=== PATIENT | male | born 1995 | race Two or more races ===

== ENCOUNTER 2023-10-09 14:26 | Emergency (ER) | payer OTHER, SELFPAY ==
--- NOTE | 2023-10-09 14:38 | ECG_ITS ---
Test Reason : cocaine use Blood Pressure : / mmHG Vent. Rate : 104 BPM Atrial Rate : 104 BPM P-R Int : 160 ms QRS Dur : 102 ms QT Int : 356 ms P-R-T Axes : 045 -20 024 degrees QTc Int : 468 ms Sinus tachycardia Minimal voltage criteria for LVH, may be normal variant ( R in aVL ) Borderline ECG No previous ECGs available Referred By: Sarah Garcia Electronically Signed By:CEDRIC NARAYANAN
[2023-10-09 14:43] VITALS: BP 140/90; PULSE 105; RESP 18; TEMP 36.6; O2SAT 97; BMI 39.8
--- NOTE | 2023-10-09 14:44 | ED.GENADULT ---
HPI - General Adult General Chief complaint: ETOH/Substance Use Stated complaint: Given Cocaine Does Not Feel Well Related Data Allergies Allergy/AdvReac Type Severity Reaction Status Date / Time No Known Allergies Allergy Verified 10/09/23 14:48 [facility] Social History Social History Advance Directives Information Provided: No Advance Directives on File: No Physical Exam ED Vital Signs: BMI result Body Mass Index 39.8 Course Course Course Narrative: This is a rapid medical exam: Additional HPI, ROS, PE not included below will be deferred to primary provider. Patient is a 28-year-old male with newly diagnosed T2DM presenting to the ED with complaint of palpitations, nausea, vomiting and diaphoresis after snorting what he thought was cocaine given to him by a friend. Denies prior cocaine use. Plan: EKG, labs, urine drug screen Medical Decision Making Lab Data 10/09/23 14:57 10/09/23 14:57 Labs: Lab Results 10/09/23 Range/Units 14:57 WBC 14.2 H (4.8-10.8) X10*3/uL RBC 6.68 H (4.60-5.80) X10*6/uL Hgb 17.2 (14.0-18.0) g/dl Hct 51.0 (42.0-52.0) % MCV 76.3 L (80.0-98.0) fL MCH 25.7 L (27.0-33.0) pg MCHC 33.7 (31.0-36.0) g/dl RDW 13.3 (11.0-16.0) % Plt Count 312 (160-400) X10*3/uL MPV 10.5 (9.4-12.4) fL Immature Gran % (Auto) 0.4 (0.0-0.4) % Neut % (Auto) 64.2 (45-73) % Lymph % (Auto) 26.1 (20-40) % Sullivan % (Auto) 8.5 (2-11) % Eos % (Auto) 0.4 (0-4) % Baso % (Auto) 0.4 (0-2) % Lymph # (Auto) 3.7 (1.2-4.9) X10*3/uL Sullivan # (Auto) 1.2 (0.1-1.2) X10*3/uL Eos # (Auto) 0.1 (0.0-0.4) X10*3/uL Baso # (Auto) 0.1 (0.0-0.2) X10*3/uL Abs Immat Gran (auto) 0.05 H (0.00-0.03) X10*3/uL Absolute Neuts (auto) 9.1 H (2.0-8.3) x10*3/uL Absolute Nucleated RBC 0.000 (0.0-0.012) X10*3/uL Nucleated RBC % (auto) 0.0 (0.0-0.2) /100WBC Sodium 137 (135-145) mmol/L Potassium 3.8 (3.3-5.1) mmol/L Chloride 102 (96-108) mmol/L Carbon Dioxide 19 L (22-29) mmol/L Anion Gap 20 (12-20) BUN 16 (9-16) mg/dL Creatinine 0.81 (0.5-1.4) mg/dL Estim Creat Clear Calc 182.2 Estimated GFR > 60 Random Glucose 281 H (60-115) mg/dL Calcium 9.9 (8.4-10.2) mg/dL Total Bilirubin 1.1 H (0.0-1.0) mg/dL AST 53 H (5-37) U/L ALT 142 H (0-40) U/L Alkaline Phosphatase 82 (39-117) U/L Troponin I High Sens < 2.7 (<3.5-35.0) ng/L Total Protein 8.3 H (6.5-8.0) g/dL Albumin 4.6 (3.5-5.0) g/dL Discharge Plan Discharge Clinical Impression: Diagnosis unknown Patient Disposition: Left W/O Completing Treatment Interventions: ED Discharge Assessment Last Done: 10/09/23 21:41 Discharge Date/Time: 10/09/23 21:50
[2023-10-09 15:05] LABS: MANUAL DIFF FLAG NO
[2023-10-09 15:07] LABS: Basophils Absolute Auto 0.1 X10*3/uL (0.0-0.2); Basophils Percent Auto 0.4 % (0-2); Eosinophils Absolute Auto 0.1 X10*3/uL (0.0-0.4); Eosinophils Percent Auto 0.4 % (0-4); Hemoglobin 17.2 g/dl (14.0-18.0); Imm Gran Abs Auto 0.05 X10*3/uL (0.00-0.03); Imm Gran Pct Auto 0.4 % (0.0-0.4); Lymphocytes Absolute Auto 3.7 X10*3/uL (1.2-4.9); Lymphocytes Percent Auto 26.1 % (20-40); Mean Corpuscular HGB Conc 33.7 g/dl (31.0-36.0); Mean Corpuscular Hemoglobin 25.7 pg (27.0-33.0); Mean Corpuscular Volume 76.3 fL (80.0-98.0); Mean Platelet Volume 10.5 fL (9.4-12.4); Monocytes Absolute Auto 1.2 X10*3/uL (0.1-1.2); Monocytes Percent Auto 8.5 % (2-11); Neutrophils Absolute Auto 9.1 x10*3/uL (2.0-8.3); Neutrophils Percent Auto 64.2 % (45-73); Platelet Count 312 X10*3/uL (160-400); Red Blood Count 6.68 X10*6/uL (4.60-5.80); Red Cell Distribution Width 13.3 % (11.0-16.0); White Blood Count 14.2 X10*3/uL (4.8-10.8)
[2023-10-09 15:24] LABS: Alanine Aminotransferase 142 U/L (0-40); Albumin Level 4.6 g/dL (3.5-5.0); Alkaline Phosphatase 82 U/L (39-117); Anion Gap 20 (12-20); Aspartate Amino Transferase 53 U/L (5-37); Bilirubin Total 1.1 mg/dL (0.0-1.0); Blood Urea Nitrogen 16 mg/dL (9-16); Calcium 9.9 mg/dL (8.4-10.2); Carbon Dioxide 19 mmol/L (22-29); Chloride 102 mmol/L (96-108); Creatinine Clr Calc Pharmacy 182.2; Estimated Glomerular Filt Rate > 60; Glucose Random 281 mg/dL (60-115); Potassium 3.8 mmol/L (3.3-5.1); Sodium 137 mmol/L (135-145); Total Protein 8.3 g/dL (6.5-8.0)
[2023-10-09 15:34] LABS: Troponin-I High Sensitivity < 2.7 ng/L (<3.5-35.0)
== END 2023-10-09 21:50 | disposition left against medical advice (07) ==
LOC: HO.ED 21:43
PROVIDERS: Registered Nurse Emergency; Emergency Provider Emergency Medicine
DX: R00.2 Palpitations (principal); R11.2 Nausea with vomiting, unspecified; R61 Generalized hyperhidrosis; E11.9 Type 2 diabetes mellitus without complications; F19.90 Other psychoactive substance use, unspecified, uncomplicated
CPT/HCPCS: 36415; 80053; 84484; 85025; 93005; 99283

== ENCOUNTER → 2023-10-09 14:38 | Outpatient (BNV) | payer OTHER, SELFPAY | PROVIDERS: Emergency Provider Emergency Medicine; Visit Provider Internal Medicine | DX: R00.0 Tachycardia, unspecified (principal) | CPT/HCPCS: 93010 ==

== ENCOUNTER 2024-10-28 08:02 | Emergency (ER) | payer OTHER, SELFPAY ==
[2024-10-28 08:09] VITALS: BP 116/86; PULSE 109; RESP 18; TEMP 37.7; O2SAT 96; BMI 39.3
[2024-10-28] MEDS: cephALEXin 500 MG CAPSULE PO (09:52)
[2024-10-28] MEDS: Doxycycline Monohydrate 100 MG CAPSULE PO (09:52)
[2024-10-28] MEDS: Lidocaine HCl 1 % MPF 5 ML VIAL SUBCUT ×2 (10:33→10:36)
--- NOTE | 2024-10-28 11:22 | ED.SKABFB ---
HPI - Skin/Abscess/Foreign Bdy General Chief complaint: Skin/Abscess/Foreign Body Stated complaint: infected cyst Time Seen by Provider: 10/28/24 09:16 History of Present Illness HPI narrative: Patient complains of red swollen painful lump in his left mid abdomen which developed over past several days there is no fever no chills no other complaint He is eating normally no abdominal pain no nausea vomiting or diarrhea Related Data Previous Rx's ?Medication ?Instructions ?Recorded cephalexin 500 mg tablet 500 mg PO QID 7 days #28 tabs 10/28/24 doxycycline hyclate 100 mg capsule 100 mg PO BID 7 days #14 caps 10/28/24 ibuprofen 600 mg tablet 600 mg PO Q6H PRN pain #20 tabs 10/28/24 oxycodone 5 mg tablet 5 mg PO Q6H PRN pain #5 tabs 10/28/24 Allergies Allergy/AdvReac Type Severity Reaction Status Date / Time No Known Allergies Allergy Verified 10/28/24 08:11 [facility] Past Medical History Source: nursing notes reviewed Social History Social History Advance Directives: No Advance Directives Information Provided: No Physical Exam Vital Signs: Vital Signs: Last Vital Signs Temp 99.9 F 10/28/24 08:09 Pulse 109 H 10/28/24 08:09 Resp 18 10/28/24 08:09 BP 116/86 10/28/24 08:09 Pulse Ox 96 10/28/24 08:09 O2 Del Method Room Air 10/28/24 08:09 BMI result Body Mass Index 39.3 Pulse of 109 was noted and attributed to anxiety as after procedure I checked his pulse myself and it was 92, no fever General appearance no distress Head is normocephalic atraumatic Neck is supple Respiratory no distress Abdominal wall on the left side just below the umbilicus under the pannus there is an area of redness fluctuance induration and tenderness consistent with an abscess with surrounding erythema Abdomen is otherwise nontender no rebound no guarding Extremities full range motion x4 skin no other rash Course Course Course Narrative: Abdominal abscess is cleansed with Betadine Anesthesia was 10 cc of 1% lidocaine with good effect A small incision was made and wound was probed with forceps with discharge of copious pus Packing was placed Dressing applied Patient tolerated well and is discharged on antibiotics and will return in 2 days for packing removal Medications Administered Discontinued Medications Generic Name Dose Route Start Last Admin Trade Name Mertq PRN Reason Stop Dose Admin Cephalexin HCl 500 mg 10/28/24 09:45 10/28/24 09:52 Cephalexin 500 Mg Capsule PO 10/28/24 09:46 500 mg ONCE ONE Administration Doxycycline Monohydrate 100 mg 10/28/24 09:45 10/28/24 09:52 Doxycycline Monohydrate 100 Mg Capsule PO 10/28/24 09:46 100 mg ONCE ONE Administration Lidocaine HCl 5 ml 10/28/24 09:44 10/28/24 10:36 Lidocaine Hcl 1 % Mpf 5 Ml Vial SUBCUT 10/28/24 09:45 5 ml ONCE ONE Administration Lidocaine HCl 5 ml 10/28/24 09:44 10/28/24 10:33 Lidocaine Hcl 1 % Mpf 5 Ml Vial SUBCUT 10/28/24 09:45 5 ml ONCE ONE Administration Discharge Plan Discharge Clinical Impression: Cellulitis, Abscess Patient Disposition: Home, Self-Care Additional Instructions: The abscess was drained with discharge of lots of pus Return to ER in 2 days for packing removal and wound check Return any time for worse pain and swelling, spreading redness, fever, any sign of worsening infection Prescriptions: New doxycycline hyclate 100 mg capsule 100 mg PO BID 7 Days Qty: 14 0RF cephalexin 500 mg tablet 500 mg PO QID 7 Days Qty: 28 0RF ibuprofen 600 mg tablet 600 mg PO Q6H PRN (Reason: pain) Qty: 20 0RF oxycodone 5 mg tablet 5 mg PO Q6H PRN (Reason: pain) Qty: 5 0RF Rx Instructions: Partial Fill upon patient request. Print Language: Uzbek
[2024-10-28 11:40] VITALS: BP 116/86; PULSE 109; RESP 18; TEMP 37.7; O2SAT 96
== END 2024-10-28 11:40 | disposition home or self-care (01) ==
PROVIDERS: Emergency Provider Emergency Medicine
DX: L02.211 Cutaneous abscess of abdominal wall (principal); L03.311 Cellulitis of abdominal wall
CPT/HCPCS: 10060; 99282; 99284; J2003